=== PATIENT | male | born 1965 | race Caucasian/White ===

== ENCOUNTER 2016-08-12 10:39 | Observation (INO) | payer OTHER ==
[~2016-08-12] VITALS: Ht 172.7 cm; Wt 83.9 kg
[2016-08-12] MEDS ORDERED: ONDANSETRON 4 MG VIAL IV PUSH PRN (12:10)
[2016-08-12 12:21] VITALS: BP_SYST 125; RESP 16; TEMP 97.9
[2016-08-12] MEDS: SODIUM CHLORIDE 0.9% 1,000 ML IV SCH (12:29)
[2016-08-12] MEDS: MORPHINE 2 MG/ML SYR IV PRN ×3 (14:34→23:08)
[2016-08-12] MEDS: DIAZEPAM 2 MG TAB PO PRN ×2 (14:46→22:22)
[2016-08-12] MEDS: TAMSULOSIN 0.4 MG CAP PO SCH (14:46)
[2016-08-12 15:20] VITALS: BP_SYST 115; RESP 16; TEMP 97.4
[2016-08-12 16:43] VITALS: Ht 172.7 cm; Wt 83.9 kg
[2016-08-12] MEDS ORDERED: Losartan 25 MG TAB PO ONE (17:05)
[2016-08-12] MEDS: LEVOFLOXACIN 500 MG TAB PO SCH (17:25)
[2016-08-12] MEDS ORDERED: *PINK BRACELET XX ONE (18:45)
[2016-08-12 19:28] VITALS: BP_SYST 124; RESP 16; TEMP 97.9
[2016-08-12] MEDS: *HOME MEDS IN MED CART XX SCH (19:48)
[2016-08-12] MEDS: TRIMETH/SULFAMETH 160/800 TAB PO SCH (21:21)
[2016-08-12] MEDS: ATRIPLA TAB PO SCH (22:22)
[2016-08-12 23:45] VITALS: BP_SYST 117; RESP 16; TEMP 97.9
[2016-08-13] MEDS: SODIUM CHLORIDE 0.9% 1,000 ML IV SCH (00:24)
[2016-08-13 04:40] VITALS: BP_SYST 143; RESP 16; TEMP 97.7
[2016-08-13 07:18] VITALS: BP_SYST 138; RESP 16; TEMP 97.9
[2016-08-13] MEDS: *HOME MEDS IN MED CART XX SCH ×2 (07:56→20:00)
[2016-08-13] MEDS: DIAZEPAM 2 MG TAB PO PRN ×2 (08:36→23:07)
[2016-08-13] MEDS: MORPHINE 2 MG/ML SYR IV PRN (08:38)
[2016-08-13] MEDS ORDERED: SODIUM CHLORIDE 0.9% 1,000 ML IV SCH (09:00)
[2016-08-13] MEDS ORDERED: DEXTROSE 50% SYRINGE 50 ML IV PRN (09:00)
[2016-08-13] MEDS ORDERED: GLUCAGON 1 MG VIAL IM PRN (09:00)
[2016-08-13] MEDS: TRIMETH/SULFAMETH 160/800 TAB PO SCH ×2 (09:30→22:24)
[2016-08-13] MEDS: TAMSULOSIN 0.4 MG CAP PO SCH (09:30)
[2016-08-13] MEDS: LEVOFLOXACIN 500 MG TAB PO SCH (09:30)
[2016-08-13] MEDS: Losartan 25 MG TAB PO SCH (10:02)
[2016-08-13 11:10] VITALS: BP_SYST 119; RESP 16; TEMP 98
[2016-08-13 15:08] VITALS: BP_SYST 119; RESP 16; TEMP 98.4
[2016-08-13 19:43] VITALS: BP_SYST 121; TEMP 98.1
[2016-08-13 19:44] VITALS: RESP 18
[2016-08-13] MEDS: ATRIPLA TAB PO SCH (22:24)
[2016-08-14] VITALS (29 sets, daily range): BP systolic 117–171; RESP 13–21; TEMP 97.6–98.6
[2016-08-14] MEDS: *HOME MEDS IN MED CART XX SCH ×2 (07:40→19:06)
[2016-08-14] MEDS: TRIMETH/SULFAMETH 160/800 TAB PO SCH ×2 (07:59→20:35)
[2016-08-14] MEDS: LEVOFLOXACIN 500 MG TAB PO SCH (08:00)
[2016-08-14] MEDS ORDERED: CEFAZOLIN 1,000 MG in DEXTROSE 5% 50 ML IV ONE (08:00)
[2016-08-14] MEDS: TAMSULOSIN 0.4 MG CAP PO SCH (08:00)
[2016-08-14] MEDS: Losartan 25 MG TAB PO SCH (08:00)
[2016-08-14] MEDS ORDERED: ONDANSETRON 4 MG VIAL IV PRN (10:25)
[2016-08-14] MEDS ORDERED: MORPHINE 2 MG/ML SYR IV PRN (10:25)
[2016-08-14] MEDS ORDERED: LIDOCAINE 1% BUFFERED 1 ML SYR INTRADERM PRN (10:25)
[2016-08-14] MEDS ORDERED: GLYCOPYRROLATE 0.2 MG/ML VIAL IV ONE (10:25)
[2016-08-14] MEDS ORDERED: MORPHINE 4 MG/ML SYR IV PRN (10:25)
[2016-08-14] MEDS ORDERED: OXYCODONE 5 MG TAB PO PRN (10:25)
[2016-08-14] MEDS ORDERED: LACT RINGERS 1,000 ML IV SCH (10:25)
[2016-08-14] MEDS ORDERED: MIDAZOLAM 2 MG/2 ML INJ IV ONE (10:25)
[2016-08-14] MEDS ORDERED: OXYCODONE/APAP 5/325 TAB PO PRN (12:30)
[2016-08-14] MEDS: DILAUDID 1 MG/ML AMP IV PRN ×2 (12:43→12:48)
[2016-08-14] MEDS: MEPERIDINE 25 MG/ML IV PRN ×2 (12:47→13:05)
[2016-08-14] MEDS: ATRIPLA TAB PO SCH (22:23)
[2016-08-14] MEDS ORDERED: MIDAZOLAM 2 MG/2 ML INJ ONE (22:48)
[2016-08-15 03:50] VITALS: BP_SYST 120; RESP 18; TEMP 98.1
[2016-08-15 07:42] VITALS: BP_SYST 124; RESP 16; TEMP 98.3
[2016-08-15] MEDS: *HOME MEDS IN MED CART XX SCH (08:00)
[2016-08-15] MEDS: TAMSULOSIN 0.4 MG CAP PO SCH (09:00)
[2016-08-15] MEDS: Losartan 25 MG TAB PO SCH (09:14)
[2016-08-15] MEDS: TRIMETH/SULFAMETH 160/800 TAB PO SCH (09:14)
[2016-08-15] MEDS: LEVOFLOXACIN 500 MG TAB PO SCH (09:14)
[2016-08-15 10:34] VITALS: BP_SYST 124; RESP 16; TEMP 98.3
== END 2016-08-15 08:56 | disposition home or self-care (01) ==
LOC: ENRESERVDT → ENRESERVTM → 5THW 11:37
PROVIDERS: ADMIT Urology; ATTEND Urology
DX: R31.0 Gross hematuria (principal); R33.9 Retention of urine, unspecified; E11.9 Type 2 diabetes mellitus without complications; Z79.84 Long term (current) use of oral hypoglycemic drugs; Z21 Asymptomatic human immunodeficiency virus [HIV] infection status
CPT/HCPCS: 76770; 80048; 82947; 85025; 85610; 85730; 88305